=== PATIENT | female | born 1975 | race Caucasian/White ===

== ENCOUNTER 2022-02-16 16:27 | Outpatient (CLI) | payer OTHER, MEDICAID, SELFPAY | END 2022-02-16 16:28 | disposition home or self-care (01) | LOC: AMB 02-28 21:17 | PROVIDERS: PCP Physician Assistant Medical; Visit Provider Internal Medicine | DX: S19.9XXA Unspecified injury of neck, initial encounter (principal); V49.50XA Passenger injured in collision with unspecified motor vehicles in traffic accident, initial encounter; Y92.414 Local residential or business street as the place of occurrence of the external cause | CPT/HCPCS: A0425; A0427 ==

== ENCOUNTER 2022-02-16 16:49 | Emergency (ER) | payer OTHER, MEDICAID, SELFPAY ==
[2022-02-16 17:05] VITALS: BP 205/126; PULSE 96; RESP 20; TEMP 36.3; O2SAT 118; BMI 37.1
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
[2022-02-16 17:18] VITALS: BP 156/100; PULSE 100; RESP 20; O2SAT 97
[2022-02-16 19:20] VITALS: BP 153/112; PULSE 82; RESP 18; O2SAT 99
--- NOTE | 2022-02-16 19:21 | ED.NURSE ---
Discharge teaching completed with use of [employer] make up arranger.
== END 2022-02-16 19:21 | disposition home or self-care (01) ==
PROVIDERS: Emergency Provider Internal Medicine; PCP Physician Assistant Medical
DX: R51.9 Headache, unspecified (principal); V43.02XA Car driver injured in collision with other type car in nontraffic accident, initial encounter
CPT/HCPCS: 70450; 72125; 99283; 99284

== ENCOUNTER 2022-06-06 18:44 | Emergency (ER) | payer MEDICAID, SELFPAY ==
[2022-06-06 19:39] VITALS: BP 169/97; PULSE 90; RESP 22; TEMP 36.7; O2SAT 98; BMI 40.4
[2022-06-06 23:05] LABS: Clue Cells >20% Clue Cells Seen (None Seen); Trichomonas No Trichomonas Seen (None Seen); Yeast No Yeast Seen (None Seen)
--- NOTE | 2022-06-06 23:43 | ED.GENADULT ---
HPI - General Adult General Chief complaint: Abdominal Pain Stated complaint: Abdominal Pain Time Seen by Provider: 06/06/22 21:42 Source: patient Mode of arrival: ambulatory Limitations: language barrier (Video homicide squad commanding officer used) History of Present Illness HPI narrative: 47-year-old female presents the emergency department with a 4 day history of lower abdominal pain. Symptoms started around the time she had intercourse with a new partner 4 days ago. She is interested in STD screening. She has been told that she has syphilis in the past but states that she has been treated and is now ?clear?. She reports lower abdominal pain which she describes as uterine pain. It is worse with sitting. No vaginal discharge. No unusual odor. No dysuria. No hematuria. No recent similar symptoms or recent treatment. She denies prior history of pelvic surgeries but does have a history of cervical dysplasia. It sounds like she had a cryotherapy performed a couple of years ago and has not had follow-up since. Denies history of gonorrhea or chlamydia or HIV. Does not believe her partner would be high risk for STDs. She notes no nausea, no vomiting. Denies a history of diverticulitis, kidney stones or STDs besides syphilis. Last menstrual period was 05/24. She does not use any contraception. 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 Past medical history benign per her report, no major long-term health problems. No prescription medications, no allergies. Socially she reports no pertinent travel, nonsmoker but has had a new sexual partner. Other than the gynecological symptoms as above, denies any other generalized, urinary, GI, skin, musculoskeletal or respiratory changes. Related Data Home Medications Medication Instructions Recorded Confirmed No Known Home Medications 02/16/22 02/16/22 Allergies Allergy/AdvReac Type Severity Reaction Status Date / Time No Known Drug Allergies Allergy Verified 02/16/22 17:10 [facility] Medical History No significant past medical history Surgical History No significant past surgical history Social History Smoking Status: Never smoker How often do you have a drink containing alcohol: never AUDIT-C Alcohol total score: 0 Non-prescribed substance use: denies use Exam Const: Vital Signs, click to edit/add: Vital Signs - 24 hr 06/06/22 19:39 Temperature 98.1 F Pulse Rate [Right Pulse Oximeter] 90 Respiratory Rate 22 Blood Pressure [Ri ght Upper Arm] 169/97 H Pulse Oximetry 98 Oxygen Delivery Me thod Room Air Documenting provider has reviewed patient's vital signs: yes Common normals: no apparent distress General appearance: cooperative, comfortable and well kempt HENMT: Common normals: normocephalic Head and scalp: normocephalic Mouth: oral and palatal mucosa normal Throat: posterior oropharynx normal Eye: Common normals: conjunctivae normal and no scleral icterus Conjunctiva: conjunctiva(e) normal Neck & C-Spine: Common normals: full ROM and no lymphadenopathy Resp: Common normals: normal respiratory effort and clear to auscultation bilaterally Effort & inspection: able to speak in complete sentences Auscultation: clear to auscultation bilaterally Cardio: Common normals: regular rate, regular rhythm, S1 normal heart sound, S2 normal heart sound, no murmurs and peripheral pulses 2+ throughout Rate: regular rate Rhythm: regular rhythm Heart sounds: S1 normal and S2 normal Peripheral pulses: pulses 2+ throughout GI: Common normals: Normal to inspection, nondistended, normoactive bowel sounds present, soft to palpation, non-tender, no hepatosplenomegaly and no masses Palpation: soft and no hepatosplenomegaly : Common normals: no CVA tenderness Bladder/kidney exam: no CVA tenderness Other: Normal-appearing vaginal mucosa. Cervix multiparous in appearance with no unusual discharge. No cervical motion tenderness, uterus is fairly retroverted and I cannot feel the fundus well. Wet prep, gonorrhea chlamydia swabs were collected. Back & Pelvis: Common normals: no CVA tenderness Neuro: Speech: speech normal Motor exam: no tremor noted and no movement abnormalities noted Psych: Appearance: well kempt Attitude: calm and engaged Insight: insight good Judgement: judgment good Skin: Common normals: no rashes or lesions noted General skin exam: no rashes or lesions noted Course Vital Signs Vital signs: Initial Vital Signs Temperature 98.1 F 06/06/22 19:39 Temperature Source Temporal Artery Scan 06/06/22 19:39 Pulse Rate 90 06/06/22 19:39 Pulse Rhythm 06/06/22 19:39 Respiratory Rate 22 06/06/22 19:39 Blood Pressure 169/97 H 06/06/22 19:39 Blood Pressure Mean 121 06/06/22 19:39 Blood Pressure Position Sitting 06/06/22 19:39 Pulse Oximetry 98 06/06/22 19:39 Oxygen Delivery Method 06/06/22 19:39 Vital Signs Temperature 98.1 F 06/06/22 19:39 Pulse Rate 90 06/06/22 19:39 Respiratory Rate 22 06/06/22 19:39 Blood Pressure 169/97 H 06/06/22 19:39 Pulse Oximetry 98 06/06/22 19:39 Oxygen Delivery Method 06/06/22 19:39 Temperature 98.1 F 06/06/22 19:39 Pulse Rate 90 06/06/22 19:39 Respiratory Rate 22 06/06/22 19:39 Blood Pressure 169/97 H 06/06/22 19:39 Pulse Oximetry 98 06/06/22 19:39 Oxygen Delivery Method 06/06/22 19:39 Medical Decision Making MDM Narrative Medical decision making narrative: Suspect bacterial vaginosis based on symptoms. Wet prep is collected. This is now back and is reviewed and is suspicious for clue cells. Will treat with metronidazole 2 g p.o. x1 with Zofran due to high risk of nausea. She was agreeable to the single treatment. Discussed avoidance of alcohol for a few days. Counseled patient that 4 days is not adequate necessarily to evaluate new exposures to gonorrhea, chlamydia, HIV or syphilis. Discussed appropriate time lines for repeat testing. If symptoms are not improved in 5 days, recommend gynecology visit outpatient. Discussed alarm symptoms that would warrant ED presentation. Lab Data Lab results reviewed: Yes I reviewed the patient's lab results Labs: Lab Results 06/06/22 Range/Units 22:30 Vaginal Trichomonas No Trichomonas Seen (None Seen) Vaginal Yeast No Yeast Seen (None Seen) Vaginal Clue Cells >20% Clue Cells Seen (None Seen) Bacterial vaginosis, will treat with metronidazole Discharge Plan Discharge Clinical Impression: Bacterial vaginosis Patient Disposition: Home, Self-Care Condition: Stable Additional Instructions: Your swabs shows bacterial vaginosis, bacterial imbalance that is not a sexually transmitted disease. The swabs for gonorrhea, chlamydia, HIV and syphilis will be back in a few days. You will be called if these are abnormal. If you need additional treatment, this will be sent to your pharmacy. For the bacterial vaginosis, it is common to have crampy pain. This tends to improve in a few days after antibiotic treatment. Your given a large dose of metronidazole, the antibiotic use to treat this. It is sufficient to treat with 1 single dose. I do get this with anti nausea medication because it tends to cause nausea when dosed this way. It is important that you do not drink any alcohol for the next 2 days, as this will cause side effects. If your symptoms have not improved in 5 days, make a follow-up appointment in the clinic with a harbor master. Deena hisopos muestran vaginosis bacteriana, un desequilibrio bacteriano que no es robby enfermedad de transmisi?n sexual. Los hisopados para gonorrea, clamidia, VIH y s?filis estar?n de vuelta en unos d?as. Se le llamar? si estos son anormales. Si necesita tratamiento adicional, jay ser? enviado a [place] farmacia. Para la vaginosis bacteriana, es com?n tener dolor tipo c?elizabeth. [place] tiende a mejorar en unos pocos d?as despu?s del tratamiento con antibi?ticos. Le dieron robyb gran dosis de metronidazol, el antibi?daniela se usa para tratar esto. Es suficiente tratar con 1 dosis ?ruben. Obtengo esto con medicamentos contra las n?useas porque tiende a causar n?useas cuando se dosifica de esta manera. Es importante que no ebonie nada de alcohol pedro luis los pr?ximos 2 d?as, ya que esto causar? efectos secundarios. Si deena s?ntomas no fisher derrick en 5 d?as, teresa robby sangeetha de seguimiento en la cl?ruben con un ginec?logo. Activity Level: No Restrictions Discharge Diet: Regular Prescriptions: No Action No Known Home Medications Follow Up/Referrals: Mayda Ortega PA-C [Primary Care Provider] - Stand Alone Forms: [employer] Info Instructions
[2022-06-06 23:55] LABS: HIV 1/2/P24 Combo Screen* Negative (Negative)
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
[2022-06-07] MEDS: metroNIDAZOLE 500 MG TABLET 2000 MG PO (00:06)
[2022-06-07] MEDS: ONDANSETRON ODT 4 MG TAB PO (00:07)
[2022-06-07 00:29] LABS: Chlamydia DNA Amplified* NOT DETECTED (No Detected); GC DNA Amplified* NOT DETECTED (No Detected)
[2022-06-08 17:26] LABS: Rapid Plasma Reagin (RPR) Reactive (Non Reactive)
[2022-06-09 15:57] LABS: Treponema pallidum AbTP-PA Reactive (Non Reactive)
--- NOTE | 2022-06-12 12:19 | ED.NURSE ---
Addendum entered by Johnna Galvan RN 06/12/22 12:27: Clarification: During conversation, pt states she thought treatment was taken care of because she received medications during her ER visit. Clarified with pt that those medications were not for the treatment of syphilis, and doctor did not know at that time that her syphilis was not in remission, until we received the positive test results. Pt verbalizes understanding and states she will call for a doctor appointment. Original Note: Pt called with positive results of syphilis test. Pt states the syphilis was treated, and is confused as to why it needs to be treated again. Discussed with pt that results from last visit in ER showed syphilis infection was active and not in remission, so pt needs to make appointment with primary care provider and obtain treatment. Pt verbalizes understanding and states she will call to make an appointment with her doctor.
== END 2022-06-07 00:28 | disposition home or self-care (01) ==
LOC: ED 23:58
PROVIDERS: Emergency Provider Family Medicine; PCP Physician Assistant Medical
DX: N76.0 Acute vaginitis (principal)
CPT/HCPCS: 36415; 86592; 86593; 86703; 86780; 87210; 87491; 87591; 99283; 99284; A9270

== ENCOUNTER 2023-02-18 15:00 | Outpatient (RCR) | payer BC, SELFPAY | END 2023-06-18 23:59 | disposition home or self-care (01) | PROVIDERS: PCP Physician Assistant Medical; Visit Provider Physician Assistant Medical | DX: M54.2 Cervicalgia (principal); M25.511 Pain in right shoulder; R29.3 Abnormal posture; M62.81 Muscle weakness (generalized); Z51.89 Encounter for other specified aftercare | CPT/HCPCS: 97035; 97110; 97140; 97162; T1013 ==

== ENCOUNTER 2023-11-09 17:09 | Emergency (ER) | payer BC, SELFPAY ==
[2023-11-09 17:16] VITALS: BP 152/84; PULSE 71; RESP 18; TEMP 37.1; O2SAT 98; BMI 34.3
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
--- NOTE | 2023-11-09 18:00 | ED.GENADULT ---
HPI - General Adult General Chief complaint: Neck Injury/Pain Stated complaint: Hit R backside of head yest-pain and bloodshot eye Time Seen by Provider: 11/09/23 17:11 History of Present Illness HPI narrative: This 48-year-old female comes in reporting headache and neck pain on the right side of her head and neck. She states that she bumped her head a couple times yesterday. It was not because of a fall but rather when she bumped her head into a Fridge. She did not have loss of consciousness and yesterday did not have immediate symptoms. Toward evening she began to have headache. She comes in today stating that she has significant headache on the right side of her head and also noticed some redness in the sclera of her right eye. She is not on any anticoagulants. She is not showing any sign of neurologic deficits. Related Data Previous Rx's Medication Instructions Recorded ketorolac 10 mg tablet 10 mg PO Q8H 5 days #15 tabs 11/09/23 Allergies Allergy/AdvReac Type Severity Reaction Status Date / Time No Known Drug Allergies Allergy Verified 02/16/22 17:10 Review of Systems Status of ROS: Reports: 10 or more systems reviewed and unremarkable except as noted in History and below Narrative: Constitutional: No fevers, no weight gain or loss. Eyes: No discharge. No vision changes. She reports some redness on the sclera of her right eye. HENT: No congestion, no sore throat, no ear pain. Cardiovascular: No chest pain, no palpitations. Respiratory: No shortness of breath, no wheezes, no cough. Gastrointestinal: No abdominal pain, no vomiting, no diarrhea. Genitourinary: No dysuria, no hematuria. Musculoskeletal: Normal range of motion. Skin: No rashes, no pruritis. Neurological: No dizziness, weakness, sensory change, speech change. Endo/Heme/Allergies: No bruising or bleeding. No polydipsia. Pysch: no suicidality, no anxiety, no insomnia. All other systems reviewed and are negative. [facility] PFS Medical History No significant past medical history Surgical History No significant past surgical history Social History Smoking Status: Never smoker Do you use any of these nicotine containing products: None How often do you have a drink containing alcohol: never AUDIT-C Alcohol total score: 0 Non-prescribed substance use: denies use service: No Exam Narrative: Exam Narrative: Constitutional: Well-developed, well-nourished, no acute distress. HEENT: Normocephalic, atraumatic. No sign of injury. She has a small subconjunctival hematoma in the right lateral sclera.. Neck: Normal range of motion. Nontender. Supple. Heart: Intact distal pulses. Lungs: No chest discomfort. No wheezes, rhonchi, or rales. Abdomen: Nontender. Back: Normal range of motion. Extremities: Normal range of motion. No injury. Skin: Intact. No rash. Warm. No erythema or pallor. Neurologic: No altered sensation. No weakness. Alert and oriented. Psychiatric: No suicidality. No anxiety or depression. No insomnia. Nursing notes and vitals signs are reviewed. Const: Vital Signs, click to edit/add: Vital Signs - 24 hr 11/09/23 17:16 Temperature 98.7 F Pulse Rate [Pulse Oximeter] 71 Respiratory Rate 18 Blood Pressure [Le ft Upper Arm] 152/84 H Pulse Oximetry 98 Oxygen Delivery Me thod Room Air Course Vital Signs Vital signs: Initial Vital Signs Temperature 98.7 F 11/09/23 17:16 Temperature Source Temporal Artery Scan 11/09/23 17:16 Pulse Rate 71 11/09/23 17:16 Pulse Rhythm Regular 11/09/23 17:16 Respiratory Rate 18 11/09/23 17:16 Blood Pressure 152/84 H 11/09/23 17:16 Blood Pressure Mean 106 H 11/09/23 17:16 Blood Pressure Position Supine 11/09/23 17:16 Pulse Oximetry 98 11/09/23 17:16 Oxygen Delivery Method Room Air 11/09/23 17:16 Vital Signs Temperature 98.7 F 11/09/23 17:16 Pulse Rate 71 11/09/23 17:16 Respiratory Rate 18 11/09/23 17:16 Blood Pressure 152/84 H 11/09/23 17:16 Pulse Oximetry 98 11/09/23 17:16 Oxygen Delivery Method Room Air 11/09/23 17:16 Temperature 98.7 F 11/09/23 17:16 Pulse Rate 71 11/09/23 17:16 Respiratory Rate 18 11/09/23 17:16 Blood Pressure 152/84 H 11/09/23 17:16 Pulse Oximetry 98 11/09/23 17:16 Oxygen Delivery Method Room Air 11/09/23 17:16 Medical Decision Making MDM Narrative Medical decision making narrative: This patient comes in reporting headache on the right side of her head and also pain in the right side of her neck. She bumped her head a couple times yesterday but did not fall or have loss of consciousness. She states that the pain worsened overnight. She is worried that something internally is wrong. She also has a small subconjunctival hematoma in the right eye that causes anxiety for her. I did obtain a CT scan of her head and C-spine and these returned with no acute findings. This was reassuring to the patient. She did receive a prescription for Toradol and I did provide a return to work note. Discharge Plan Discharge Clinical Impression: Acute headache, Strain of neck muscle Patient Disposition: Home, Self-Care Condition: Stable Additional Instructions: Take medication as prescribed and needed. Follow up with MD return if worsening. Prescriptions: New ketorolac 10 mg tablet 10 mg PO Q8H 5 Days Qty: 15 0RF Follow Up/Referrals: Mayda Ortega PA-C [Primary Care Provider] - Stand Alone Forms: [employer] Info Instructions
--- OUTSIDE RECORDS SUMMARY | 2023-11-09 18:41 | XMS_ITS | Data Portability ---
Author Name Unknown Address [address] [place] [id number] Phone [phone] Organization [facility] Address [address] [place] [address] [place] [address] Assessment No assessment recorded. Plan of Treatment Reminders Order Date Submit Date Provider Last Modified By Organization Details Last Modified Time Details Appointments None recorded. Lab None recorded. Referral None recorded. Procedures None recorded. Surgeries None recorded. Imaging None recorded. Medication Orders omeprazole 40 mg capsule,de layed release 2019 020 [facility] Not available 0 13:26:03 Patient TargetsNo targets recorded. Patient InstructionsNo instructions recorded. Reason for Referral None Reported. Medical Equipment None Reported. Allergies No known drug allergies Medications Name Sig Start Date Stop Date Status Note LastModified by Organization Details LastModified Time Preparation H Hydrocortis one 1 % topical cream apply by topical route 2 times every day a thin layer to the affected area(s) 2018 active Not Available Not Available Not Avai lable acetaminoph en 325 mg tablet active Not Available Not Available Not Available azithromyci n 250 mg tablet take 4 tablet by oral route as directed 2018 active Not Available Not Available Not Avai lable fluconazole 150 mg tablet take 2 tablet by oral route every day 03/10 completed Not Available Not Available Not Available omeprazole 40 mg capsule,del ayed release Take 1 capsule every day by oral route in the morning for 30 days. 2019 active Not Available Not Available Not Avai lable ferrous sulfate 325 mg (65 mg iron) tablet Take 1 tablet every day by oral route. 12/04 completed Not Available Not Available Not Available Bicillin L-A 2,400,000 unit/4 mL intramuscul ar syringe inject 4 millilite r by intramusc ular route once 09/05 completed Not Available Not Available Not Available ibuprofen 600 mg tablet 12/04 completed Not Available Not Available Not Available cyclobenzap rine 5 mg tablet 12/04 completed Not Available Not Available Not Available metoclopram juan 10 mg disintegrat ing tablet take 1 tablet by oral route 4 times every day on top of tongue, allow to dissolve then swallow 30 mins as needed for nausea/bl oating 02/16 completed Not Available Not Available Not Available Adult Tussin Chest Congestion 100 mg/5 mL oral liquid 12/04 completed Not Available Not Available Not Available Metamucil 3.4 gram/5.4 gram oral powder take once daily 2018 active Not Available Not Available Not Avai lable Vitals Date Recorded Body height Body mass index (BMI) Body weight Provider Name and Address Organization Details Last Updated DateTime 12/05/2019 151.13 cm 35.7 kg/m2 09651.63 g Stacey Lester, NON DESTRUCTIVE TESTING TECHNICIAN [address] [place], [address], [place] [facility] 12/05/2019 12:20:28 Date Recorded Systolic blood pressure Diastolic blood pressure Provider Name and Address Organization Details Last Updated DateTime 02/15/2018 116 mm[Hg] 78 mm[Hg] Not Available [facility] 0 01/28/2020 12:57:31 Date Recorded Systolic blood pressure Diastolic blood pressure Provider Name and Address Organization Details Last Updated DateTime 03/02/2016 118 mm[Hg] 79 mm[Hg] Not Available [facility] 0 01/28/2020 12:57:31 Date Recorded Systolic blood pressure Diastolic blood pressure Provider Name and Address Organization Details Last Updated DateTime 09/05/2018 119 mm[Hg] 78 mm[Hg] Not Available [facility] 0 01/28/2020 12:57:31 Date Recorded Systolic blood pressure Diastolic blood pressure Provider Name and Address Organization Details Last Updated DateTime 02/27/2018 120 mm[Hg] 80 mm[Hg] Not Available [facility] 0 01/28/2020 12:57:31 Date Recorded Systolic blood pressure Diastolic blood pressure Provider Name and Address Organization Details Last Updated DateTime 09/20/2017 121 mm[Hg] 78 mm[Hg] Not Available [facility] 0 01/28/2020 12:57:31 Date Recorded Systolic blood pressure Diastolic blood pressure Provider Name and Address Organization Details Last Updated DateTime 10/05/2018 122 mm[Hg] 78 mm[Hg] Not Available [facility] 0 01/28/2020 12:57:31 Date Recorded Systolic blood pressure Diastolic blood pressure Provider Name and Address Organization Details Last Updated DateTime 09/01/2017 125 mm[Hg] 84 mm[Hg] Not Available [facility] 0 01/28/2020 12:57:31 Date Recorded Systolic blood pressure Diastolic blood pressure Provider Name and Address Organization Details Last Updated DateTime 10/04/2018 128 mm[Hg] 87 mm[Hg] Not Available [facility] 0 01/28/2020 12:57:31 Date Recorded Systolic blood pressure Diastolic blood pressure Provider Name and Address Organization Details Last Updated DateTime 12/15/2017 133 mm[Hg] 90 mm[Hg] Not Available [facility] 0 01/28/2020 12:57:31 Date Recorded Systolic blood pressure Diastolic blood pressure Provider Name and Address Organization Details Last Updated DateTime 07/26/2017 134 mm[Hg] 91 mm[Hg] Not Available [facility] 0 01/28/2020 12:57:31 Date Recorded Systolic blood pressure Diastolic blood pressure Provider Name and Address Organization Details Last Updated DateTime 07/31/2018 136 mm[Hg] 89 mm[Hg] Not Available [facility] 0 01/28/2020 12:57:32 Date Recorded Systolic blood pressure Diastolic blood pressure Provider Name and Address Organization Details Last Updated DateTime 11/27/2018 151 mm[Hg] 85 mm[Hg] Not Available [facility] 0 01/28/2020 12:57:32 Social History None recorded. Functional Status None recorded. Mental Status None recorded. Family History Relationship Description Onset Age of this Age Resolved Age Notes Father No current problems or disability Mother No current problems or disability Medical History No medical history recorded. Gynecological HistoryNo gynecological history recorded. Obstetrics History GPAL:G 3 P 2 1 0 2 Type Value Full Term 2 Premature 1 Living 2 Total 3 Past Encounters Encounter ID Performer Location Encounter Start Date Encounter Closed Date Diagnosis/Indication Diagnosis SNOMED-CT Code [id number] Stacey Lester NP [facility] [address] [place] [phone] 11/26/2019 16:57:48 11/26/2019 17:02:11 [id number] Stacey Lester NP [facility] [address] [facility] [place] [address] 12/05/2019 12:08:50 12/05/2019 13:31:40 Gastritis 9039120 Plantar fa sciitis of left foot [id number] 101 Varicose v eins of lower extremity [id number] Lumbar radiculopathy 128 [id number] Health Concerns Section Related Observation LastModified by Organization Detai ls LastModified Time None Recorded Concern Status LastModified by Organization Details LastModified Time None Recorded Advance Directives Directive None Recorded Payers Encounter Date Sequence Insurance Name Policy Number Policy Earl Covered Member ID Earl Member ID Guarantor Name 12/05/2019 SLIDING FEE SCHEDULE - DISCOUNT Sabi Porras 11/26/2019 SLIDING FEE SCHEDULE - DISCOUNT Sabi Porras Notes Date Note Type Note Provider Name and Address Organization Details Recorded Time 12/05/2019 text/html HPI Notes: 44 y. o. [place]bourgish-speaking established patient evaluated via [facility] for the following concerns: 1. Burning epigastric and bilateral rib pain after eating 2-3 times daily for the last 3 weeks. History of treatment for gastritis/GERD with Omeprazole and Pantoprazole. Reports that pain is similar. Describes as 9/10, tightness, burning, strong, inflammation after she eats or when she lays on her side. Couldnt sleep last night due to the pain. Associated symptoms include: fatigue, dizziness, diarrhea, constipation, sensation of difficulty swallowing. Acidic foods make it worse. Denies fever, chills, weight changes, shortness of breath, chest pain, palpitations, cough, vomiting, hematochezia, melena, hematemesis, inability to eat or drink, fainting. 2. Bilateral posterior leg/hip pain x 2 months, radiating down bilateral legs, occasionally causing numbness and tingling in bilateral feet, especially after she stands or sits for long periods of time, or at night when she is laying down. She first noticed it after lifting and moving something heavy at work. Denies falls, loss of bladder control, weakness in lower extremities, back pain 3. Left heel and plantar foot pain x 4 weeks. Describes as swelling and shooting pain that radiates up to her lower calf. Worse with standing still for long periods and in the mornings. Better with walking. Was evaluated for this pain 3 weeks ago, concern for DVT considering patient hx of DVT. Patient was instructed to go to the ER but did not. Since then it has stayed the same. Ice and creams (biofreeze) help. No meds tried. Denies redness, heat, pain to the touch, visual differences between feet. Stacey Lester, NON DESTRUCTIVE TESTING TECHNICIAN [address] [place], [address], [facility] - [facility] 12/05/2019 15:12:35 OBGyn Episode No OBEpisode recorded.
[2023-11-09 19:42] VITALS: BP 152/84; PULSE 71; RESP 18; TEMP 37.1
== END 2023-11-09 19:42 | disposition home or self-care (01) ==
PROVIDERS: Emergency Provider Emergency Medicine Emergency Medical Services; PCP Physician Assistant Medical
DX: S16.1XXA Strain of muscle, fascia and tendon at neck level, initial encounter (principal)
CPT/HCPCS: 70450; 72125; 99283; 99284

== ENCOUNTER 2024-06-21 01:02 | Emergency (ER) | payer BC, SELFPAY ==
[2024-06-21 01:09] VITALS: BP 159/101; PULSE 65; RESP 16; TEMP 36.2; O2SAT 98; BMI 39.6
[2024-06-21 01:26] LABS: Appearance Urine Clear (Clear); Bilirubin Urine Negative (Negative); Blood Urine 3+ (Negative); Color Urine Yellow (Yellow); Glucose Urine Negative (Negative); Ketones Urine Negative (Negative); Leukocyte Esterase Urine Negative (Negative); Nitrite Urine Negative (Negative); Protein Urine Negative (Negative); Specific Gravity Urine <= 1.005 (1.000-1.030); Urobilinogen Urine 0.2 (0.2-1.0)
[2024-06-21 01:33] LABS: Bacteria Urine Few; Squamous Epithelial Cell Urine Few (None-Few); WBC Urine 0-2 (0-5)
--- NOTE | 2024-06-21 01:54 | CRLHL7_ITS ---
For Patients: As a result of the Century Cures Act, medical imaging exams and procedure reports are released immediately into your electronic medical record. You may view this report before your referring provider. If you have questions, please contact your health care provider. INDICATION: Right flank pain. TECHNIQUE: CT abdomen and pelvis without contrast, stone protocol. COMPARISON: CT urogram 12/27/2023. FINDINGS: Solid organ evaluation is limited without the use of intravenous contrast Kidney/ureters: Kidneys are normal in caliber. No kidney or ureteral stones and no hydronephrosis. No sign of perinephric inflammation. Ureters are normal in caliber. Liver/gallbladder/bile ducts: Redemonstrated hepatic segment 5 cystic focus. The liver is otherwise normal in size, shape and attenuation. Gallbladder is normal without visualized stones or inflammation. No biliary dilatation. Spleen/pancreas/adrenal glands: The spleen, adrenal glands and pancreas are within normal limits. GI tract: The bowel is unremarkable. Normal appendix. Abdominal wall/omentum/peritoneum: No free air or significant free fluid. No mass or inflammation. Lymph nodes: No lymphadenopathy. Pelvis: Unremarkable pelvis. Lower chest: Unremarkable. IMPRESSION: : No current kidney or ureteral stones and no hydronephrosis. No specific findings to explain flank pain. Please note that all CT scans at this facility use dose modulation, iterative reconstruction, and/or weight-based dosing when appropriate to reduce radiation dose to as low as reasonably achievable. Dictated by Bryan Escalante MD @ 06/21/2024 3:00:41 AM (Electronically Signed)
--- NOTE | 2024-06-21 01:55 | ED.GENADULT ---
HPI - General Adult General Chief complaint: Back Injury/Pain Stated complaint: Low back pain Time Seen by Provider: 06/21/24 01:17 Source: patient Mode of arrival: ambulatory Limitations: language barrier (Infant Teacher used) History of Present Illness HPI narrative: 49-year-old female presents to the emergency department for evaluation of right flank pain for the past 2 days. Had some right anterior abdominal pain a couple of days before that. Some mild dysuria as well. Started her menstrual cycle today. No prior history of kidney stones. Feels nauseated, has had vomiting x1. No fever. No trauma or injury. No prior history of similar symptoms. Denies prior history of abdominal surgeries. Tried some ibuprofen earlier today with no significant improvement in symptoms. No pelvic pain. Did not try any other interventions besides the ibuprofen. Pain does not radiate. No cardiac symptoms, no difficulty breathing. No prior history of gallstones or gallbladder disease. Past medical history notable for hypertension. Reports that she takes an antihypertensive but cannot remember what it is. The outside records do not pull 1 in for me. Nonsmoker. ROS is notable for the flank pain as above and GI symptoms only, otherwise denies times 12 systems. Related Data Previous Rx's ?Medication ?Instructions ?Recorded ketorolac 10 mg tablet 10 mg PO Q8H 5 days #15 tabs 11/09/23 docusate sodium 100 mg capsule 100 mg PO DAILY #60 caps 06/21/24 (Colace) Allergies Allergy/AdvReac Type Severity Reaction Status Date / Time No Known Drug Allergies Allergy Verified 02/16/22 17:10 [facility] Medical History No significant past medical history Surgical History No significant past surgical history Social History Smoking Status: Never smoker Do you use any of these nicotine containing products: None How often do you have a drink containing alcohol: never AUDIT-C Alcohol total score: 0 Non-prescribed substance use: denies use service: No Exam Const: Vital Signs, click to edit/add: Vital Signs - 24 hr 06/21/24 01:09 Temperature 97.1 F L Pulse Rate [Left P ulse Oximeter] 65 Respiratory Rate 16 Blood Pressure [Ri ght Upper Arm] 159/101 H Pulse Oximetry 98 Oxygen Delivery Me thod Room Air Documenting provider has reviewed patient's vital signs: yes Common normals: no apparent distress and alert General appearance: cooperative Other: Appears mildly uncomfortable but cooperative. Good historian. HENMT: Common normals: normocephalic, moist oral mucous membranes and oropharynx normal Head and scalp: normocephalic Eye: Common normals: conjunctivae normal Conjunctiva: conjunctiva(e) normal Chest: Common normals: inspection of chest normal Resp: Common normals: normal respiratory effort, no use of accessory muscles and clear to auscultation bilaterally Effort & inspection: able to speak in complete sentences Auscultation: clear to auscultation bilaterally Cardio: Common normals: regular rate, regular rhythm, S1 normal heart sound, S2 normal heart sound and no murmurs Rate: regular rate Rhythm: regular rhythm Heart sounds: S1 normal and S2 normal GI: Common normals: Normal to inspection, nondistended, normoactive bowel sounds present, soft to palpation, non-tender, no hepatosplenomegaly and no masses Palpation: soft and no hepatosplenomegaly Back & Pelvis: Common normals: thoracic and lumbar spine normal to inspection Other: Right-sided CVA tenderness present. Extremity: Common normals: normal to inspection, normal capillary refill and no pedal edema Neuro: Sensorium/orientation: alert Speech: speech normal Motor exam: no movement abnormalities noted Psych: Common normals: speech normal Attitude: engaged Activity/motor behavior: appropriate eye contact Speech: normal speech Insight: insight good Judgement: judgment good Skin: Common normals: no rashes or lesions noted General skin exam: no rashes or lesions noted Course Course ED Course: 49-year-old female with right flank pain suspicious for kidney stone. Differential diagnosis also includes a gallstone, pancreatitis, colitis, shingles though unlikely as no rashes present. Multiple other intra-abdominal elements as well. Patient is on her menstrual cycle, initial urinalysis is positive for blood but this could be from potentially kidney stone or her menstrual cycle, difficult to tell. She was not tender with palpation of the abdomen, this is somewhat reassuring. Will place IV, give Toradol and Zofran. CT of the abdomen without contrast, typical intra-abdominal labs to look for gallbladder obstruction, elevated bilirubin, lipase, CRP, etc.. Await clinical response and findings. Reevaluation(s) Time of Reevaluation #1: 03:14 Reevaluation #1: Patient feeling somewhat better after the Toradol. All labs and CT are reassuring. CT shows some mild constipation but no kidney stones. She has a stable liver cyst that is not likely the cause of her symptoms. Everything else looks reassuring. Patient counseled on this. Will give Colace 200 mg p.o. x1 and a dose of MiraLax. Prescription for Colace to continue 1-2 times daily to help prevent return of constipation. Alarm symptoms reviewed that would warrant ED presentation. Written instructions provided. All questions answered. Vital Signs Vital signs: Initial Vital Signs Temperature 97.1 F L 06/21/24 01:09 Temperature Source Temporal Artery Scan 06/21/24 01:09 Pulse Rate 65 06/21/24 01:09 Pulse Rhythm Regular 06/21/24 01:09 Respiratory Rate 16 06/21/24 01:09 Blood Pressure 159/101 H 06/21/24 01:09 Blood Pressure Mean 120 H 06/21/24 01:09 Blood Pressure Position Sitting 06/21/24 01:09 Pulse Oximetry 98 06/21/24 01:09 Oxygen Delivery Method Room Air 06/21/24 01:09 Vital Signs Temperature 97.1 F L 06/21/24 01:09 Pulse Rate 65 06/21/24 01:09 Respiratory Rate 16 06/21/24 01:09 Blood Pressure 159/101 H 06/21/24 01:09 Pulse Oximetry 98 06/21/24 01:09 Oxygen Delivery Method Room Air 06/21/24 01:09 Temperature 97.1 F L 06/21/24 01:09 Pulse Rate 65 06/21/24 01:09 Respiratory Rate 16 06/21/24 01:09 Blood Pressure 159/101 H 06/21/24 01:09 Pulse Oximetry 98 06/21/24 01:09 Oxygen Delivery Method Room Air 06/21/24 01:09 Medications Administered Medications: Generic Name Dose Route Start Last Admin Trade Name Freq PRN Reason Stop Dose Admin Ketorolac Tromethamine 15 mg 06/21/24 01:52 06/21/24 02:29 Ketorolac 15 Mg/Ml Inj IVP 06/21/24 01:53 15 mg ONCE ONE Administration Ondansetron HCl 4 mg 06/21/24 01:52 06/21/24 02:29 Ondansetron 2 Mg/Ml Inj IVP 06/21/24 01:53 4 mg ONCE ONE Administration Medical Decision Making Lab Data Lab results reviewed: Yes I reviewed the patient's lab results Lab results narrative: Labs all reassuring except hematuria which certainly could be from her menstrual cycle. Labs: Lab Results 06/21/24 06/21/24 06/21/24 Range/Units 01:24 01:42 02:20 WBC 5.85 (4.50-11.00) K/uL RBC 4.01 (4.00-5.20) m/uL Hgb 11.1 L (12.0-16.0) gm/dL Hct 33.7 (33.0-51.0) % MCV 84 (80-100) fL MCH 28 (26-34) pg MCHC 33 (32-36) gm/dL RDW Coeff of Deanna 15.5 (11.5-15.5) % Plt Count 202 (140-440) K/uL Neut % (Auto) 45.8 (42.0-72.0) % Lymph % (Auto) 44.4 H (20-44) % [place] % (Auto) 7.7 (0.0-11.0) % Eos % (Auto) 1.9 (0.0-7.0) % Baso % (Auto) 0.2 (0.0-3.0) % Neut # (Auto) 2.68 (1.7-7.0) K/uL Lymph # (Auto) 2.60 (0.90-2.90) K/uL [place] # (Auto) 0.50 (0.00-0.90) K/UL Eos # (Auto) 0.11 (0.00-0.50) K/uL Baso # (Auto) 0.01 (0.00-0.30) K/uL Abs Immat Gran (auto) 0.00 (0.00-0.30) K/uL Imm/Tot Granulo (auto) 0.0 % Lactate 0.8 (0.5-1.9) mmol/L Urine Color Yellow (Yellow) Urine Appearance Clear (Clear) Urine pH 6.0 (5.0-8.5) Ur Specific [place] <= 1.005 (1.000-1.030) Urine Protein Negative (Negative) Urine Glucose (UA) Negative (Negative) Urine Ketones Negative (Negative) Urine Blood 3+ A (Negative) Urine Nitrite Negative (Negative) Urine Bilirubin Negative (Negative) Urine Urobilinogen 0.2 (0.2-1.0) Ur Leukocyte Esterase Negative (Negative) Urine RBC 5-10 A (0-2) Urine WBC 0-2 (0-5) Ur Squamous Epith Cells Few (None-Few) Urine Bacteria Few A (None) Urine HCG, Qual Negative (Negative) Imaging Data CT scan - abdomen: Attestation: I have reviewed the pertinent imaging results. My impression: Constipation, otherwise small liver cyst, otherwise normal. Radiologist's impression: IMPRESSION: : No current kidney or ureteral stones and no hydronephrosis. No specific findings to explain flank pain. Please note that all CT scans at this facility use dose modulation, iterative reconstruction, and/or weight-based dosing when appropriate to reduce radiation dose to as low as reasonably achievable. Dictated by Bryan Escalante MD @ 06/21/2024 3:00:41 AM Discharge Plan Discharge Clinical Impression: Constipation Patient Disposition: Home, Self-Care Condition: Improved Instructions: Constipation (ED) Additional Instructions: As we discussed, all of your labs and imaging look good. You do have a small cyst on the liver that is stable, unchanged from previous visits. This does not need further attention right now. This CT shows constipation which I do think explains her pain. All labs are reassuring. No pancreatitis, infection, inflammation or other worrisome findings. Your given a stool softener and osmotic laxative here in the emergency department. I would like for you to keep taking a stool softener 1-2 times daily for maintenance and prevention of further constipation. For pain, you may continue to take Tylenol 1000 mg every 6 hours and or ibuprofen 600 mg every 6 hours as needed. Follow up with her primary care doctor if you continue to have these episodes, any severe symptoms, rectal bleeding, persistent vomiting or high fever would warrant coming into the emergency department. [place] ya comentamos, todos los an?lisis de laboratorio y las im?genes parecen estar jon. Tiene un ori?o quiste en el h?gado que est? estable y no coelho cambiado desde las visitas anteriores. No necesita m?s atenci?n por ahora. Esta tomograf?a computarizada muestra estre?imiento, lo que creo que explica grubbs dolor. Todos los an?lisis de laboratorio son tranquilizadores. No hay pancreatitis, infecci?n, inflamaci?n ni otros hallazgos preocupantes. En el servicio de urgencias le fisher administrado un ablandador de heces y un laxante osm?daniela. Me gustar?a que siguiera tomando un ablandador de heces 1 o 2 veces al d?a para el mantenimiento y la prevenci?n de un mayor estre?imiento. Para el dolor, puede seguir tomando Tylenol 1000 mg cada 6 horas o ibuprofeno 600 mg cada 6 horas seg?n sea necesario. Rula un seguimiento con grubbs m?dico de atenci?n primaria si contin?a teniendo estos episodios; cualquier s?ntoma grave, sangrado rectal, v?mitos persistentes o fiebre serge justificar?an que fuera al servicio de urgencias. Activity Level: No Restrictions Discharge Diet: Regular Prescriptions: New docusate sodium [Colace] 100 mg capsule 100 mg PO DAILY Qty: 60 1RF No Action ketorolac 10 mg tablet 10 mg PO Q8H 5 Days Qty: 15 0RF Follow Up/Referrals: Mayda Ortega PA-C [Primary Care Provider] - Stand Alone [facility] Inst[facility]
[2024-06-21 02:29] LABS: Lactate* 0.8 mmol/L (0.5-1.9)
[2024-06-21] MEDS: ONDANSETRON 2 MG/ML inj 4 MG IVP (02:29)
[2024-06-21] MEDS: KETOROLAC 15 MG/ML inj IVP (02:29)
[2024-06-21 02:30] LABS: Basophils Absolute Auto 0.01 K/uL (0.00-0.30); Basophils Percent Auto 0.2 % (0.0-3.0); Eosinophils Absolute Auto 0.11 K/uL (0.00-0.50); Eosinophils Percent Auto 1.9 % (0.0-7.0); Hematocrit 33.7 % (33.0-51.0); Hemoglobin* 11.1 gm/dL (12.0-16.0); Lymphocytes Percent Auto 44.4 % (20-44); Mean Corpuscular HGB Conc 33 gm/dL (32-36); Mean Corpuscular Hemoglobin 28 pg (26-34); Mean Corpuscular Volume 84 fL (80-100); Monocytes Percent Auto 7.7 % (0.0-11.0); Neutrophils Absolute Auto 2.68 K/uL (1.7-7.0); Neutrophils Percent Auto 45.8 % (42.0-72.0); Platelet Count* 202 K/uL (140-440); RDW Coefficient of Variation % 15.5 % (11.5-15.5); Red Blood Count 4.01 m/uL (4.00-5.20); White Blood Count* 5.85 K/uL (4.50-11.00)
[2024-06-21 02:33] LABS: Slide Review Reflex No
[2024-06-21 02:35] LABS: Ur HCG Qualitative* Negative (Negative)
[2024-06-21 03:11] LABS: Albumin* 4.2 g/dL (3.3-5.0); Chloride* 106 mmol/L (96-114)
[2024-06-21 03:12] LABS: Potassium* 3.3 mmol/L (3.6-5.1); Sodium* 137 mmol/L (135-149)
[2024-06-21 03:14] LABS: Creatinine* 0.4 mg/dL (0.5-1.5); Est. Creatinine Clearance* 236.15; Estimated Glomerular Filt Rate 121 ml/min
[2024-06-21 03:15] LABS: Alanine Aminotransferase* 22 U/L (4-35); Alkaline Phosphatase* 94 U/L (40-150); Anion Gap 9 mEq/L (7-15); Aspartate Amino Transferase* 24 U/L (12-35); Bilirubin Total* 0.6 mg/dL (0.1-1.5); Blood Urea Nitrogen* 13 mg/dL (7-30); Calcium* 8.8 mg/dL (8.4-10.6); Carbon Dioxide* 22 mmol/L (20-32); Glucose* 94 mg/dL (60-115); Lipase* 47 U/L (23-300); Total Protein* 7.4 g/dL (6.0-8.3)
[2024-06-21 03:18] LABS: C Reactive Protein* 0.8 mg/dL (0.5-1.0)
[2024-06-21] MEDS: DOCUSATE SODIUM 100 MG CAPSULE 200 MG PO (03:35)
[2024-06-21] MEDS: polyethylene glycoL 3350 17 GM PACK PO (03:35)
== END 2024-06-21 04:11 | disposition home or self-care (01) ==
PROVIDERS: Emergency Provider Family Medicine; PCP Physician Assistant Medical
DX: K59.00 Constipation, unspecified (principal)
CPT/HCPCS: 36415; 74176; 80053; 81001; 81025; 83605; 83690; 85025; 86140; 87086; 96374; 96375; 99284; A9270; J1885; J2405